=== PATIENT | male | born 1955 | race Caucasian/White ===

== ENCOUNTER 2022-02-22 13:10 | Inpatient (IN) | payer OTHER, MEDICAID ==
[~2022-02-22] VITALS: Ht 167.6 cm; Wt 95.0 kg
[2022-02-22 13:10] VITALS: BP_SYST 104
[2022-02-22 14:00] LABS: BASOPHILS % (AUTO) 0.3 % (0.0-2.0); EOSINOPHILS % (AUTO) 0.7 % (0.0-4.0); HEMATOCRIT 37.4 % (36-54); HEMOGLOBIN 12.7 g/dL (14.0-18.0); LYMPHOCYTES # (AUTO) 0.8 K/uL (1.0-5.5); LYMPHOCYTES % (AUTO) 11.8 % (20.5-51.5); MEAN CORPUSCULAR HEMOGLOBIN 31 pg (27-31); MEAN CORPUSCULAR HGB CONC 34 % (32-36); MEAN CORPUSCULAR VOLUME 90 fL (79.0-98.0); MONOCYTES # (AUTO) 0.4 K/uL (0.0-1.0); MONOCYTES % (AUTO) 6.4 % (1.7-9.3); NEUTROPHILS # (AUTO) 5.3 K/uL (1.8-7.7); NEUTROPHILS % (AUTO) 80.8 % (40.0-70.0); PLATELET COUNT (AUTO) 118 K/uL (130-430); RED BLOOD CELL COUNT(AUTO) 4.15 MIL/uL (4.2-6.2); RED CELL DISTRIBUTION WIDTH 14.7 % (9.0-15.0); WHITE BLOOD COUNT (AUTO) 6.5 K/uL (4.8-10.8)
[2022-02-22 14:06] LABS: ANION GAP 8 (5-15); CALCIUM 10.6 mg/dL (8.4-11.0); CHLORIDE 109 mmol/L (98-107); CREATININE 1.26 mg/dL (0.55-1.30); GLUCOSE 81 mg/dL (70-99); UREA NITROGEN, BLOOD 34 mg/dL (8-21)
[2022-02-22 14:09] LABS: GFR AFRICAN AMERICAN 74 mL/min (>90)
[2022-02-22 14:15] LABS: ALANINE AMINOTRANSFERASE 78 U/L (12-78); ALBUMIN 3.6 g/dL (3.4-4.8); ASPARTATE AMINOTRANSFERASE 41 U/L (10-37); TOTAL BILIRUBIN 0.2 mg/dL (0.0-1.0)
[2022-02-22] MEDS ORDERED: levETIRAcetam 1,500 MG in NS 85 ML IV ONE (15:00)
[2022-02-22] MEDS ORDERED: LORazepam 2 MG/ML VIAL IVP ONE (15:00)
[2022-02-22 15:35] LABS: BILIRUBIN,URINE NEGATIVE (NEGATIVE); BLOOD, URINE NEGATIVE (NEGATIVE); CLARITY/URINE CLEAR (CLEAR); COLOR,URINE YELLOW (YELLOW); GLUCOSE,URINE NEGATIVE (NEGATIVE); KETONES,URINE NEGATIVE (NEGATIVE); LEUKOCYTE ESTERASE ,URINE NEGATIVE (NEGATIVE); NITRITE, URINE NEGATIVE (NEGATIVE); PROTEIN URINE 1+ (NEGATIVE); UROBILINOGEN,URINE 0.2 (0.2-1.0)
[2022-02-22 15:48] LABS: BARBITURATE, URINE NEGATIVE (NEG <=200); BENZODIAZEPINE, URINE NEGATIVE (NEG <=150); CANNABINOID, URINE NEGATIVE (NEG <=50); COCAINE, URINE NEGATIVE (NEG <=150); METHAMPHETAMINES SCREEN,URINE NEGATIVE (NEG <=500); OPIATE, URINE NEGATIVE (NEG <=100); PHENCYCLIDINE SCREEN,URINE NEGATIVE (NEG <=25); UR TRICYCLIC ANTIDEPRESSANTS NEGATIVE (NEG <=300); URINE AMPHETAMINE NEGATIVE (NEG <=500); URINE METHADONE NEGATIVE (NEG <=200); URINE OXYCODONE SCREEN NEGATIVE (NEG <=100); URINE PROPOXYPHENE SCREEN NEGATIVE (NEG <=300)
[2022-02-22 15:54] LABS: BACTERIA,URINE None Seen /HPF (None Seen); MUCUS,URINE None Seen /LPF (None Seen); RBC,URINE 0-3 /HPF (0-3); WBC,URINE 0-3 /HPF (0-3)
[2022-02-22] MEDS ORDERED: NOREPINEPHRINE BITARTRATE 4 MG in NS 246 ML IV ONE (23:00)
[2022-02-22] MEDS ORDERED: NACL 0.9% 1,000 ML IV ONE (23:00)
[2022-02-22] MEDS ORDERED: NALOXONE HCL 2 MG/2 ML SYR (NARCAN) IVP ONE (23:15)
[2022-02-22] MEDS ORDERED: NALOXONE HCL 2 MG/2 ML SYR ONE (23:28)
[2022-02-22] MEDS ORDERED: NOREPINEPHRINE 4 MG/4 ML VIAL IV ONE (23:35)
[2022-02-23] VITALS (7 sets, daily range): BP systolic 93–155
[2022-02-23] MEDS ORDERED: LORazepam 2 MG/ML VIAL ONE (00:15)
[2022-02-23] MEDS ORDERED: LORazepam 2 MG/ML VIAL IVP ONE ×2 (00:15→14:30)
[2022-02-23] MEDS: D5/0.45 NS 1,000 ML IV SCH ×3 (03:02→17:10)
[2022-02-23] MEDS ORDERED: NOREPINEPHRINE 4 MG/4 ML VIAL IV ONE ×4 (03:19→13:29)
[2022-02-23] MEDS ORDERED: ETOMIDATE 20 MG/ 10 ML VIAL (AMIDATE) IVP ONE (08:00)
[2022-02-23] MEDS ORDERED: SUCCINYLCHOLINE CHLORIDE 20 MG/ML(QUELICIN) IVP ONE (08:00)
[2022-02-23] MEDS ORDERED: PROPOFOL DRIP 100 ML IV ONE (08:04)
[2022-02-23] MEDS: PROPOFOL DRIP 100 ML IV PRN ×5 (08:47→21:34)
[2022-02-23] MEDS ORDERED: iohexoL 350 mgI/mL, 100 ML INFUS..BTL IV ONE ×2 (08:50→20:34)
[2022-02-23] MEDS: NOREPINEPHRINE BITARTRATE 4 MG in D5W 246 ML IV PRN ×6 (09:18→22:56)
[2022-02-23] MEDS ORDERED: MULT-1089 PO (10:00)
[2022-02-23] MEDS ORDERED: LIP40 PO (10:00)
[2022-02-23] MEDS ORDERED: MEROPENEM 1 GM in NS 100 ML IV ONE (10:00)
[2022-02-23] MEDS ORDERED: LEVE1000 PO ×2 (10:00)
[2022-02-23] MEDS ORDERED: LAMO50TA2 PO (10:00)
[2022-02-23] MEDS ORDERED: BENZ1TAB82 PO (10:00)
[2022-02-23] MEDS ORDERED: VANCOMYCIN HCL 1 GM/NS PREMIX 250 ML IV ONE (10:00)
[2022-02-23] MEDS ORDERED: LOSA25TA3 PO (10:00)
[2022-02-23] MEDS ORDERED: CLOP75TA32 PO (10:00)
[2022-02-23] MEDS ORDERED: RISP1TAB7 PO (10:00)
[2022-02-23] MEDS ORDERED: NOR10 PO (10:00)
[2022-02-23] MEDS: DOPamine PREMIX 250 ML IV PRN ×2 (10:10→17:07)
[2022-02-23] MEDS ORDERED: ONDANSETRON HCL 4 MG/2 ML VIAL IVP PRN (11:15)
[2022-02-23] MEDS: ALBUTEROL SULFATE 0.083% 2.5 MG/3 ML VIAL.NEB INH SCH ×3 (14:20→23:12)
[2022-02-23] MEDS: IPRATROPIUM BROM 0.5 MG/2.5 ML VIAL.NEB (ATROVENT) INH SCH ×3 (14:20→23:13)
[2022-02-23] MEDS ORDERED: ENOXAPARIN SODIUM 30 MG/0.3 ML SYRINGE SUBCUT ONE (17:00)
[2022-02-23] MEDS ORDERED: levETIRAcetam 1,000 MG IV BAG 100 ML IV ONE (21:00)
[2022-02-23] MEDS: LORazepam 2 MG/ML VIAL IVP PRN (21:26)
[2022-02-23] MEDS ORDERED: CEFEPIME 2 GM in D5W 100 ML IV ONE (23:00)
[2022-02-24] VITALS (26 sets, daily range): BP systolic 89–168
[2022-02-24] MEDS ORDERED: CEFEPIME 2 GM/VIAL (MAXIPIME) ONE (00:11)
[2022-02-24] MEDS: NOREPINEPHRINE BITARTRATE 4 MG in D5W 246 ML IV PRN ×4 (00:59→10:15)
[2022-02-24] MEDS: PROPOFOL DRIP 100 ML IV PRN ×5 (01:33→20:28)
[2022-02-24] MEDS: ALBUTEROL SULFATE 0.083% 2.5 MG/3 ML VIAL.NEB INH SCH ×6 (03:49→23:25)
[2022-02-24] MEDS: IPRATROPIUM BROM 0.5 MG/2.5 ML VIAL.NEB (ATROVENT) INH SCH ×6 (03:50→23:25)
[2022-02-24] MEDS: levETIRAcetam 1,000 MG IV BAG 100 ML IV SCH ×2 (05:53→19:24)
[2022-02-24] MEDS ORDERED: NOREPINEPHRINE 4 MG/4 ML VIAL IV ONE ×3 (06:34→14:58)
[2022-02-24 07:19] LABS: BASOPHILS % (AUTO) 0.2 % (0.0-2.0); EOSINOPHILS # (AUTO) 0.1 K/uL (0.0-0.4); EOSINOPHILS % (AUTO) 1.2 % (0.0-4.0); HEMATOCRIT 34.6 % (36-54); HEMOGLOBIN 11.6 g/dL (14.0-18.0); LYMPHOCYTES # (AUTO) 0.7 K/uL (1.0-5.5); LYMPHOCYTES % (AUTO) 5.6 % (20.5-51.5); MEAN CORPUSCULAR HEMOGLOBIN 31 pg (27-31); MEAN CORPUSCULAR HGB CONC 34 % (32-36); MEAN CORPUSCULAR VOLUME 91 fL (79.0-98.0); MONOCYTES % (AUTO) 8.3 % (1.7-9.3); NEUTROPHILS # (AUTO) 10.2 K/uL (1.8-7.7); NEUTROPHILS % (AUTO) 84.7 % (40.0-70.0); PLATELET COUNT (AUTO) 120 K/uL (130-430); RED BLOOD CELL COUNT(AUTO) 3.79 MIL/uL (4.2-6.2); RED CELL DISTRIBUTION WIDTH 14.7 % (9.0-15.0)
[2022-02-24 07:34] LABS: CALCIUM 8.5 mg/dL (8.4-11.0); CREATININE 2.35 mg/dL (0.55-1.30)
[2022-02-24] MEDS: PANTOPRAZOLE SODIUM 40 MG/VIAL (PROTONIX) IVP SCH (09:00)
[2022-02-24] MEDS: D5/0.45 NS 1,000 ML IV SCH (10:12)
[2022-02-24] MEDS: LORazepam 2 MG/ML VIAL IVP PRN (11:01)
[2022-02-24] MEDS: metroNIDAZOLE 500 mg/NS 100 ML IV SCH ×2 (14:29→22:12)
[2022-02-24] MEDS: NOREPINEPHRINE BITARTRATE 32 MG in NS 218 ML IV PRN (15:08)
[2022-02-24] MEDS ORDERED: D5NS 500 ML IV ONE (15:15)
[2022-02-24] MEDS: ENOXAPARIN SODIUM 30 MG/0.3 ML SYRINGE SUBCUT SCH (16:47)
[2022-02-24] MEDS: DOPamine PREMIX 250 ML IV PRN (16:49)
[2022-02-24 19:04] LABS: PROTHROMBIN TIME 10.6 SECS (9.5-12.5)
[2022-02-24] MEDS: CEFEPIME 2 GM in D5W 100 ML IV SCH (21:00)
[2022-02-25] VITALS (65 sets, daily range): BP systolic 98–162
[2022-02-25] MEDS: PROPOFOL DRIP 100 ML IV PRN ×4 (00:17→19:06)
[2022-02-25] MEDS ORDERED: NOREPINEPHRINE 4 MG/4 ML VIAL IV ONE (01:41)
[2022-02-25] MEDS: ALBUTEROL SULFATE 0.083% 2.5 MG/3 ML VIAL.NEB INH SCH ×6 (03:19→23:26)
[2022-02-25] MEDS: IPRATROPIUM BROM 0.5 MG/2.5 ML VIAL.NEB (ATROVENT) INH SCH ×6 (03:19→23:26)
[2022-02-25] MEDS: levETIRAcetam 1,000 MG IV BAG 100 ML IV SCH ×2 (05:56→17:45)
[2022-02-25] MEDS: metroNIDAZOLE 500 mg/NS 100 ML IV SCH ×3 (06:00→22:18)
[2022-02-25 06:20] LABS: BASOPHILS % (AUTO) 0.4 % (0.0-2.0); EOSINOPHILS # (AUTO) 0.2 K/uL (0.0-0.4); HEMATOCRIT 33.5 % (36-54); HEMOGLOBIN 11.6 g/dL (14.0-18.0); LYMPHOCYTES # (AUTO) 0.4 K/uL (1.0-5.5); LYMPHOCYTES % (AUTO) 5.3 % (20.5-51.5); MEAN CORPUSCULAR HEMOGLOBIN 31 pg (27-31); MEAN CORPUSCULAR HGB CONC 35 % (32-36); MEAN CORPUSCULAR VOLUME 90 fL (79.0-98.0); MONOCYTES # (AUTO) 0.7 K/uL (0.0-1.0); MONOCYTES % (AUTO) 9.4 % (1.7-9.3); NEUTROPHILS # (AUTO) 6.5 K/uL (1.8-7.7); NEUTROPHILS % (AUTO) 82.9 % (40.0-70.0); PLATELET COUNT (AUTO) 100 K/uL (130-430); RED BLOOD CELL COUNT(AUTO) 3.71 MIL/uL (4.2-6.2); WHITE BLOOD COUNT (AUTO) 7.8 K/uL (4.8-10.8)
[2022-02-25 06:36] LABS: ALBUMIN 2.3 g/dL (3.4-4.8); CALCIUM 8.6 mg/dL (8.4-11.0); CREATININE 1.97 mg/dL (0.55-1.30); PHOSPHORUS 3.8 mg/dL (2.7-4.5); TOTAL BILIRUBIN 0.5 mg/dL (0.0-1.0)
[2022-02-25] MEDS: DOPamine PREMIX 250 ML IV PRN ×2 (06:40→20:36)
[2022-02-25] MEDS: NOREPINEPHRINE BITARTRATE 32 MG in NS 218 ML IV PRN (06:42)
[2022-02-25 08:29] LABS: ERYTHROCYTE SEDIMENTATION RATE 67 MM/HR (0-15)
[2022-02-25] MEDS: PANTOPRAZOLE SODIUM 40 MG/VIAL (PROTONIX) IVP SCH (09:25)
[2022-02-25] MEDS ORDERED: SODIUM BICARBONATE 8.4% VIAL 50 MEQ/50 ML VIAL INJ ONE (15:15)
[2022-02-25] MEDS: ENOXAPARIN SODIUM 30 MG/0.3 ML SYRINGE SUBCUT SCH (17:44)
[2022-02-25] MEDS: CEFEPIME 2 GM in D5W 100 ML IV SCH (20:58)
[2022-02-26] VITALS (52 sets, daily range): BP systolic 14–160
[2022-02-26] MEDS: IPRATROPIUM BROM 0.5 MG/2.5 ML VIAL.NEB (ATROVENT) INH SCH ×6 (03:41→23:07)
[2022-02-26] MEDS: ALBUTEROL SULFATE 0.083% 2.5 MG/3 ML VIAL.NEB INH SCH ×6 (03:41→23:07)
[2022-02-26] MEDS: PROPOFOL DRIP 100 ML IV PRN (04:33)
[2022-02-26] MEDS: metroNIDAZOLE 500 mg/NS 100 ML IV SCH ×3 (05:36→21:40)
[2022-02-26] MEDS: levETIRAcetam 1,000 MG IV BAG 100 ML IV SCH ×2 (06:20→17:18)
[2022-02-26 06:26] LABS: EOSINOPHILS # (AUTO) 0.1 K/uL (0.0-0.4); EOSINOPHILS % (AUTO) 2.5 % (0.0-4.0); HEMATOCRIT 29.6 % (36-54); HEMOGLOBIN 10.2 g/dL (14.0-18.0); LYMPHOCYTES # (AUTO) 0.4 K/uL (1.0-5.5); LYMPHOCYTES % (AUTO) 10.3 % (20.5-51.5); MEAN CORPUSCULAR HEMOGLOBIN 32 pg (27-31); MEAN CORPUSCULAR HGB CONC 35 % (32-36); MEAN CORPUSCULAR VOLUME 91 fL (79.0-98.0); MONOCYTES # (AUTO) 0.6 K/uL (0.0-1.0); MONOCYTES % (AUTO) 15.5 % (1.7-9.3); NEUTROPHILS # (AUTO) 2.9 K/uL (1.8-7.7); NEUTROPHILS % (AUTO) 70.7 % (40.0-70.0); PLATELET COUNT (AUTO) 93 K/uL (130-430); RED BLOOD CELL COUNT(AUTO) 3.25 MIL/uL (4.2-6.2); RED CELL DISTRIBUTION WIDTH 15.1 % (9.0-15.0); WHITE BLOOD COUNT (AUTO) 4.2 K/uL (4.8-10.8)
[2022-02-26 06:30] LABS: CALCIUM 8.5 mg/dL (8.4-11.0); CREATININE 1.76 mg/dL (0.55-1.30); PHOSPHORUS 2.4 mg/dL (2.7-4.5)
[2022-02-26] MEDS: LORazepam 2 MG/ML VIAL IVP PRN (06:59)
[2022-02-26 07:37] LABS: ERYTHROCYTE SEDIMENTATION RATE 81 MM/HR (0-15)
[2022-02-26 09:23] LABS: C-REACTIVE PROTEIN QUANT 27.2 mg/dL (0-0.5)
[2022-02-26] MEDS: PANTOPRAZOLE SODIUM 40 MG/VIAL (PROTONIX) IVP SCH (09:42)
[2022-02-26 10:21] LABS: C-REACTIVE PROTEIN QUANT 61.9 mg/dL (0-0.5)
[2022-02-26] MEDS: DOPamine PREMIX 250 ML IV PRN (10:47)
[2022-02-26] MEDS ORDERED: NA PHOS 15 MM in NS 250 ML IV ONE (11:00)
[2022-02-26] MEDS: ENOXAPARIN SODIUM 30 MG/0.3 ML SYRINGE SUBCUT SCH (17:17)
[2022-02-26] MEDS: CEFEPIME 2 GM in D5W 100 ML IV SCH (21:40)
[2022-02-27] VITALS (32 sets, daily range): BP systolic 119–158
[2022-02-27] MEDS: ALBUTEROL SULFATE 0.083% 2.5 MG/3 ML VIAL.NEB INH SCH ×6 (02:55→23:26)
[2022-02-27] MEDS: IPRATROPIUM BROM 0.5 MG/2.5 ML VIAL.NEB (ATROVENT) INH SCH ×6 (02:55→23:26)
[2022-02-27] MEDS: levETIRAcetam 1,000 MG IV BAG 100 ML IV SCH ×2 (06:34→18:00)
[2022-02-27] MEDS: metroNIDAZOLE 500 mg/NS 100 ML IV SCH ×3 (06:35→22:14)
[2022-02-27 06:36] LABS: BASOPHILS % (AUTO) 0.2 % (0.0-2.0); EOSINOPHILS # (AUTO) 0.2 K/uL (0.0-0.4); EOSINOPHILS % (AUTO) 2.5 % (0.0-4.0); HEMATOCRIT 25.8 % (36-54); HEMOGLOBIN 8.8 g/dL (14.0-18.0); LYMPHOCYTES # (AUTO) 0.9 K/uL (1.0-5.5); LYMPHOCYTES % (AUTO) 13.3 % (20.5-51.5); MEAN CORPUSCULAR HEMOGLOBIN 31 pg (27-31); MEAN CORPUSCULAR HGB CONC 34 % (32-36); MEAN CORPUSCULAR VOLUME 92 fL (79.0-98.0); MONOCYTES # (AUTO) 0.8 K/uL (0.0-1.0); MONOCYTES % (AUTO) 11.4 % (1.7-9.3); NEUTROPHILS # (AUTO) 4.9 K/uL (1.8-7.7); NEUTROPHILS % (AUTO) 72.6 % (40.0-70.0); PLATELET COUNT (AUTO) 69 K/uL (130-430); RED BLOOD CELL COUNT(AUTO) 2.81 MIL/uL (4.2-6.2); RED CELL DISTRIBUTION WIDTH 15.4 % (9.0-15.0); WHITE BLOOD COUNT (AUTO) 6.8 K/uL (4.8-10.8)
[2022-02-27 06:37] LABS: ALBUMIN 1.9 g/dL (3.4-4.8); C-REACTIVE PROTEIN QUANT 19.1 mg/dL (0-0.5); CALCIUM 8.5 mg/dL (8.4-11.0); CREATININE 1.91 mg/dL (0.55-1.30); PHOSPHORUS 3.9 mg/dL (2.7-4.5); TOTAL BILIRUBIN 0.4 mg/dL (0.0-1.0)
[2022-02-27 07:16] LABS: INR 1.1 (0.80-1.20); PROTHROMBIN TIME 10.7 SECS (9.5-12.5)
[2022-02-27] MEDS: PANTOPRAZOLE SODIUM 40 MG/VIAL (PROTONIX) IVP SCH (08:47)
[2022-02-27 10:20] LABS: ERYTHROCYTE SEDIMENTATION RATE 109 MM/HR (0-15)
[2022-02-27] MEDS: ENOXAPARIN SODIUM 30 MG/0.3 ML SYRINGE SUBCUT SCH (17:00)
[2022-02-27] MEDS: CEFEPIME 2 GM in D5W 100 ML IV SCH (20:51)
[2022-02-28] VITALS (30 sets, daily range): BP systolic 119–181
[2022-02-28] MEDS: IPRATROPIUM BROM 0.5 MG/2.5 ML VIAL.NEB (ATROVENT) INH SCH ×6 (03:38→23:48)
[2022-02-28] MEDS: ALBUTEROL SULFATE 0.083% 2.5 MG/3 ML VIAL.NEB INH SCH ×6 (03:38→23:48)
[2022-02-28] MEDS: metroNIDAZOLE 500 mg/NS 100 ML IV SCH ×3 (05:09→22:42)
[2022-02-28] MEDS: levETIRAcetam 1,000 MG IV BAG 100 ML IV SCH ×2 (06:43→17:24)
[2022-02-28 07:41] LABS: BASOPHILS # (AUTO) 0.1 K/uL (0.0-0.2); BASOPHILS % (AUTO) 0.8 % (0.0-2.0); EOSINOPHILS # (AUTO) 0.2 K/uL (0.0-0.4); EOSINOPHILS % (AUTO) 3.1 % (0.0-4.0); HEMATOCRIT 27.4 % (36-54); HEMOGLOBIN 9.3 g/dL (14.0-18.0); LYMPHOCYTES # (AUTO) 0.9 K/uL (1.0-5.5); LYMPHOCYTES % (AUTO) 11.2 % (20.5-51.5); MEAN CORPUSCULAR HEMOGLOBIN 31 pg (27-31); MEAN CORPUSCULAR HGB CONC 34 % (32-36); MEAN CORPUSCULAR VOLUME 93 fL (79.0-98.0); MONOCYTES # (AUTO) 0.7 K/uL (0.0-1.0); MONOCYTES % (AUTO) 9.1 % (1.7-9.3); NEUTROPHILS # (AUTO) 6.1 K/uL (1.8-7.7); NEUTROPHILS % (AUTO) 75.8 % (40.0-70.0); PLATELET COUNT (AUTO) 65 K/uL (130-430); RED BLOOD CELL COUNT(AUTO) 2.95 MIL/uL (4.2-6.2); RED CELL DISTRIBUTION WIDTH 15.6 % (9.0-15.0)
[2022-02-28 07:49] LABS: C-REACTIVE PROTEIN QUANT 13.5 mg/dL (0-0.5); CALCIUM 9.1 mg/dL (8.4-11.0); CREATININE 1.44 mg/dL (0.55-1.30); PHOSPHORUS 3.9 mg/dL (2.7-4.5)
[2022-02-28] MEDS: PANTOPRAZOLE SODIUM 40 MG/VIAL (PROTONIX) IVP SCH (10:28)
[2022-02-28 12:08] LABS: ERYTHROCYTE SEDIMENTATION RATE 114 MM/HR (0-15)
[2022-02-28] MEDS: ENOXAPARIN SODIUM 30 MG/0.3 ML SYRINGE SUBCUT SCH (17:24)
[2022-02-28] MEDS: CEFEPIME 2 GM in D5W 100 ML IV SCH (21:13)
[2022-03-01] VITALS (11 sets, daily range): BP systolic 145–168
[2022-03-01] MEDS: ALBUTEROL SULFATE 0.083% 2.5 MG/3 ML VIAL.NEB INH SCH ×5 (03:25→19:54)
[2022-03-01] MEDS: IPRATROPIUM BROM 0.5 MG/2.5 ML VIAL.NEB (ATROVENT) INH SCH ×5 (03:26→19:55)
[2022-03-01] MEDS: metroNIDAZOLE 500 mg/NS 100 ML IV SCH ×3 (04:58→21:38)
[2022-03-01] MEDS: levETIRAcetam 1,000 MG IV BAG 100 ML IV SCH ×2 (06:26→17:43)
[2022-03-01 06:58] LABS: BASOPHILS % (AUTO) 0.4 % (0.0-2.0); EOSINOPHILS # (AUTO) 0.2 K/uL (0.0-0.4); EOSINOPHILS % (AUTO) 2.4 % (0.0-4.0); HEMOGLOBIN 9.1 g/dL (14.0-18.0); LYMPHOCYTES # (AUTO) 0.8 K/uL (1.0-5.5); LYMPHOCYTES % (AUTO) 11.3 % (20.5-51.5); MEAN CORPUSCULAR HEMOGLOBIN 31 pg (27-31); MEAN CORPUSCULAR HGB CONC 34 % (32-36); MEAN CORPUSCULAR VOLUME 92 fL (79.0-98.0); MONOCYTES # (AUTO) 0.7 K/uL (0.0-1.0); MONOCYTES % (AUTO) 9.8 % (1.7-9.3); NEUTROPHILS # (AUTO) 5.5 K/uL (1.8-7.7); NEUTROPHILS % (AUTO) 76.1 % (40.0-70.0); PLATELET COUNT (AUTO) 67 K/uL (130-430); RED BLOOD CELL COUNT(AUTO) 2.93 MIL/uL (4.2-6.2); RED CELL DISTRIBUTION WIDTH 15.7 % (9.0-15.0); WHITE BLOOD COUNT (AUTO) 7.2 K/uL (4.8-10.8)
[2022-03-01 07:12] LABS: CALCIUM 9.3 mg/dL (8.4-11.0); CREATININE 1.22 mg/dL (0.55-1.30)
[2022-03-01] MEDS: PANTOPRAZOLE SODIUM 40 MG/VIAL (PROTONIX) IVP SCH (09:46)
[2022-03-01] MEDS: ENOXAPARIN SODIUM 30 MG/0.3 ML SYRINGE SUBCUT SCH (17:16)
[2022-03-01] MEDS ORDERED: amLODIPine BESYLATE 10 MG TABLET PO ONE (17:45)
[2022-03-01] MEDS ORDERED: D5W 500 ML IV ONE (18:00)
[2022-03-01] MEDS: CEFEPIME 2 GM in D5W 100 ML IV SCH (21:36)
[2022-03-01] MEDS: hydrALAZINE HCL 20 MG/ML VIAL IVP PRN (21:39)
[2022-03-02] VITALS (10 sets, daily range): BP systolic 118–171
[2022-03-02] MEDS: ALBUTEROL SULFATE 0.083% 2.5 MG/3 ML VIAL.NEB INH SCH ×7 (02:00→23:29)
[2022-03-02] MEDS: IPRATROPIUM BROM 0.5 MG/2.5 ML VIAL.NEB (ATROVENT) INH SCH ×7 (02:00→23:29)
[2022-03-02] MEDS: metroNIDAZOLE 500 mg/NS 100 ML IV SCH ×3 (05:24→22:48)
[2022-03-02] MEDS: levETIRAcetam 1,000 MG IV BAG 100 ML IV SCH ×2 (05:25→17:30)
[2022-03-02] MEDS: hydrALAZINE HCL 20 MG/ML VIAL IVP PRN ×2 (06:40→17:41)
[2022-03-02 06:44] LABS: BASOPHILS % (AUTO) 0.5 % (0.0-2.0); EOSINOPHILS # (AUTO) 0.2 K/uL (0.0-0.4); EOSINOPHILS % (AUTO) 2.3 % (0.0-4.0); HEMATOCRIT 26.4 % (36-54); HEMOGLOBIN 8.9 g/dL (14.0-18.0); LYMPHOCYTES # (AUTO) 0.7 K/uL (1.0-5.5); LYMPHOCYTES % (AUTO) 9.8 % (20.5-51.5); MEAN CORPUSCULAR HEMOGLOBIN 31 pg (27-31); MEAN CORPUSCULAR HGB CONC 34 % (32-36); MEAN CORPUSCULAR VOLUME 93 fL (79.0-98.0); MONOCYTES # (AUTO) 0.8 K/uL (0.0-1.0); MONOCYTES % (AUTO) 10.1 % (1.7-9.3); NEUTROPHILS # (AUTO) 5.8 K/uL (1.8-7.7); NEUTROPHILS % (AUTO) 77.3 % (40.0-70.0); PLATELET COUNT (AUTO) 83 K/uL (130-430); RED BLOOD CELL COUNT(AUTO) 2.85 MIL/uL (4.2-6.2); RED CELL DISTRIBUTION WIDTH 15.6 % (9.0-15.0); WHITE BLOOD COUNT (AUTO) 7.5 K/uL (4.8-10.8)
[2022-03-02 06:50] LABS: CALCIUM 9.4 mg/dL (8.4-11.0); CREATININE 1.27 mg/dL (0.55-1.30)
[2022-03-02] MEDS: amLODIPine BESYLATE 10 MG TABLET PO SCH (09:00)
[2022-03-02] MEDS: PANTOPRAZOLE SODIUM 40 MG/VIAL (PROTONIX) IVP SCH (10:15)
[2022-03-02 17:06] LABS: FOLATE (FOLIC ACID) 6.2 ng/mL (>3.0)
[2022-03-02] MEDS: ENOXAPARIN SODIUM 30 MG/0.3 ML SYRINGE SUBCUT SCH (17:29)
[2022-03-02] MEDS: CEFEPIME 2 GM in D5W 100 ML IV SCH (21:25)
[2022-03-03] MEDS: hydrALAZINE HCL 20 MG/ML VIAL IVP PRN (03:11)
[2022-03-03 04:00] VITALS: BP_SYST 145
[2022-03-03] MEDS: ALBUTEROL SULFATE 0.083% 2.5 MG/3 ML VIAL.NEB INH SCH ×3 (04:50→15:56)
[2022-03-03] MEDS: IPRATROPIUM BROM 0.5 MG/2.5 ML VIAL.NEB (ATROVENT) INH SCH ×3 (04:50→15:56)
[2022-03-03] MEDS: levETIRAcetam 1,000 MG IV BAG 100 ML IV SCH (05:07)
[2022-03-03] MEDS: metroNIDAZOLE 500 mg/NS 100 ML IV SCH (06:17)
[2022-03-03 06:18] LABS: BASOPHILS # (AUTO) 0.1 K/uL (0.0-0.2); BASOPHILS % (AUTO) 0.7 % (0.0-2.0); EOSINOPHILS # (AUTO) 0.1 K/uL (0.0-0.4); EOSINOPHILS % (AUTO) 1.4 % (0.0-4.0); HEMATOCRIT 26.9 % (36-54); HEMOGLOBIN 9.2 g/dL (14.0-18.0); LYMPHOCYTES % (AUTO) 11.2 % (20.5-51.5); MEAN CORPUSCULAR HEMOGLOBIN 32 pg (27-31); MEAN CORPUSCULAR HGB CONC 34 % (32-36); MEAN CORPUSCULAR VOLUME 93 fL (79.0-98.0); MONOCYTES # (AUTO) 0.7 K/uL (0.0-1.0); MONOCYTES % (AUTO) 8.4 % (1.7-9.3); NEUTROPHILS # (AUTO) 6.9 K/uL (1.8-7.7); NEUTROPHILS % (AUTO) 78.3 % (40.0-70.0); PLATELET COUNT (AUTO) 107 K/uL (130-430); RED CELL DISTRIBUTION WIDTH 15.2 % (9.0-15.0); WHITE BLOOD COUNT (AUTO) 8.8 K/uL (4.8-10.8)
[2022-03-03 06:51] LABS: ALBUMIN 2.4 g/dL (3.4-4.8); C-REACTIVE PROTEIN QUANT 4.9 mg/dL (0-0.5); CALCIUM 9.7 mg/dL (8.4-11.0); CREATININE 1.55 mg/dL (0.55-1.30); TOTAL BILIRUBIN 0.4 mg/dL (0.0-1.0)
[2022-03-03 09:04] VITALS: BP_SYST 158
[2022-03-03] MEDS: amLODIPine BESYLATE 10 MG TABLET PO SCH (09:07)
[2022-03-03] MEDS: PANTOPRAZOLE SODIUM 40 MG/VIAL (PROTONIX) IVP SCH (09:07)
[2022-03-03 11:07] LABS: ERYTHROCYTE SEDIMENTATION RATE 115 MM/HR (0-15)
[2022-03-03 11:10] VITALS: BP_SYST 153
[2022-03-03 13:45] VITALS: BP_SYST 153
[2022-03-03 15:47] VITALS: BP_SYST 126
== END 2022-03-03 16:30 | DRG 870 ==
LOC: SED 13:10 → SIC 02-23 01:51 → STU 03-01 15:17
PROVIDERS: ADMIT Preventive Medicine Preventive Medicine/Occupational Environmental Medicine; ATTEND Preventive Medicine Preventive Medicine/Occupational Environmental Medicine
PROC: 5A1955Z Respiratory Ventilation, Greater than 96 Consecutive Hours (ICD-10-PCS; principal; 2022-02-23)
PROC: 02HV33Z Insertion of Infusion Device into Superior Vena Cava, Percutaneous Approach (ICD-10-PCS; 2022-02-23)
PROC: 0BH17EZ Insertion of Endotracheal Airway into Trachea, Via Natural or Artificial Opening (ICD-10-PCS; 2022-02-23)
PROC: 4A00X4Z Measurement of Central Nervous Electrical Activity, External Approach (ICD-10-PCS; 2022-02-25)
PROC: 02HV33Z Insertion of Infusion Device into Superior Vena Cava, Percutaneous Approach (ICD-10-PCS; 2022-02-25)
PROC: B548ZZA Ultrasonography of Superior Vena Cava, Guidance (ICD-10-PCS; 2022-02-25)
DX: A41.9 Sepsis, unspecified organism (principal); J96.01 Acute respiratory failure with hypoxia; E43 Unspecified severe protein-calorie malnutrition; R65.21 Severe sepsis with septic shock; J69.0 Pneumonitis due to inhalation of food and vomit; E87.1 Hypo-osmolality and hyponatremia; D61.818 Other pancytopenia; E87.0 Hyperosmolality and hypernatremia; Z99.11 Dependence on respirator [ventilator] status; G93.40 Encephalopathy, unspecified; N17.9 Acute kidney failure, unspecified; Z93.0 Tracheostomy status; G40.909 Epilepsy, unspecified, not intractable, without status epilepticus; R74.01 Elevation of levels of liver transaminase levels; E88.09 Other disorders of plasma-protein metabolism, not elsewhere classified; F20.9 Schizophrenia, unspecified; F32.A Depression, unspecified; E66.01 Morbid (severe) obesity due to excess calories; E83.39 Other disorders of phosphorus metabolism; G20 Parkinson's disease; F99 Mental disorder, not otherwise specified; G93.89 Other specified disorders of brain; D69.6 Thrombocytopenia, unspecified; R13.10 Dysphagia, unspecified; Z20.822 Contact with and (suspected) exposure to COVID-19; R73.9 Hyperglycemia, unspecified; K52.9 Noninfective gastroenteritis and colitis, unspecified; G93.0 Cerebral cysts; I12.9 Hypertensive chronic kidney disease with stage 1 through stage 4 chronic kidney disease, or unspecified chronic kidney disease; N18.9 Chronic kidney disease, unspecified; Z88.8 Allergy status to other drugs, medicaments and biological substances; Z79.899 Other long term (current) drug therapy; Z68.33 Body mass index [BMI] 33.0-33.9, adult; Z86.73 Personal history of transient ischemic attack (TIA), and cerebral infarction without residual deficits
CPT/HCPCS: 36415; 36600; 70450-TC; 70496; 70498; 71045; 76376; 76770; 80048; 80053; 80307; 81000; 82550; 82607; 82728; 82746; 82803-TC; 82962; 83605; 83735; 83880; 84100; 84484; 85025; 85384; 85610-TC; 85651-TC; 85730-TC; 86022; 86140; 87040; 87070-TC; 87081; 87205-TC; 92610-GN; 93005; 93970; 94002; 94003; 94640; 94760; 95816; 99285; C9113; G0378; J0330; J0360; J0692; J1265; J1650; J1953; J2060; J2185; J2310; J2704; J3370; J3490; J7030; J7050; J7060; J7613; Q9967